=== PATIENT | female | born 1980 | race Two or more races ===

== ENCOUNTER 2025-04-20 00:13 | Observation (INO) | payer OTHER ==
[~2025-04-20] VITALS: Ht 162.6 cm; Wt 81.6 kg
--- NOTE | 2025-04-20 00:46 | DVH ---
Left lower extremity venous duplex Clinical History: rule out DVT Comparison: None Technique: Duplex Doppler evaluation of the deep venous system of the left lower extremity from the common femor al vein to the popliteal vein including color Doppler and spectral/pulsed waveform analysis was perfo rmed. Findings: The common femoral vein demonstrates appropriate compressibility and waveform variability. There is compressibility/patency of the great saphenous vein at the proximal thigh. The femoral vein demonstrates appropriate compressibility and waveform variability. The deep femoral vein demonstrates appropriate compressibility and waveform variability. The popliteal vein demonstrates appropriate compressibility and waveform variability. There is normal compressibility at the tibioperoneal trunk. Impression: 1. No left femoropopliteal venous thrombosis. 2. Contralateral common femoral vein is patent.
--- NOTE | 2025-04-20 01:13 | DVHDS2 ---
Physician Discharge Progress N Final Diagnosis: left leg cramp Operations or Procedures: Operations or Procedures S: 44yo , IUP @ 27.6 wks presents to OB Triage c/o pain and swelling in the left leg started at the ankle and moved up to her knee since Thursday. She thought she might have a spider bite. Left calf muscle was cramping today to where it was painful, now it is mild cramping. Pt deniesUCs/LOF/vb. +fm. PNC with Camden Mari LM. Uncomplicated thus far. O: VSS NST: reactive TOCO: no UCs Left leg assessment - redness noted on inner ankle and tenderness of calf muscle, no redness or heat palpated from calf. A: 44yo , IUP @ 27.6 wks Left leg cramp P: D/C home FKC/PTL precautions reviewed Take magnesium oral supplement or put topical magnesium on left calf muscle. f/u with primary OB provider as scheduled Dr. Meier consulted, agrees with POC. Other Interventions Other Interventions [place] [id number] Ph: [phone] DIAGNOSTIC IMAGING Diagnostic Imaging Report : [id number] Signed PATIENT: SOUMYA OSCARACCT: [id number] UNIT: [id number] : 1980 LOC: [facility] ROOM / BED: TRIAGE2 / A AGE / SEX: 44 / F ADM STATUS: ADM IN SERVICE [id number] ORDERING PHYSICIAN: KATHY MENDIETA CNM PROCEDURE(s): LLDVT - LT Lower DVT REASON: rule out DVT ORDER NUMBER(s): [id number], ACCESSION NUMBER(s): [id number] Left lower extremity venous duplex Clinical History: rule out DVT Comparison: None Technique: Duplex Doppler evaluation of the deep venous system of the left lower extremity from the common femoral vein to the popliteal vein including color Doppler and spectral/pulsed waveform analysis was performed. Findings: The common femoral vein demonstrates appropriate compressibility and waveform variability. There is compressibility/patency of the great saphenous vein at the proximal thigh. The femoral vein demonstrates appropriate compressibility and waveform variability. The deep femoral vein demonstrates appropriate compressibility and waveform variability. The popliteal vein demonstrates appropriate compressibility and waveform variability. There is normal compressibility at the tibioperoneal trunk. Impression: 1. No left femoropopliteal venous thrombosis. 2. Contralateral common femoral vein is patent. ATED BY: GEO LUNA MD DICTATED DATE/TIME: 04/20/2542 SIGNED BY: GEO LUNA MD SIGNED DATE/TIME: 04/20/2542 CC: Condition on Discharge: Stable Disposition: Home Discharge Instructions: Diet: Regular Activity: No Restrictions, As Tolerated Medications: see med list Follow Up Care: Specialist: f/u with primary OB provider as scheduled Discharge Statement: "Patient was advised to return to the ER or call 911 if any headaches, dizziness, shortness of breath, chest pain, abdominal pain, bleeding, fevers, or worsening of medical condition. Patient was counseled about treatment plan, medications, possible side effects, patientverbalized understanding. All questions were answered to the best of my ability. This discharge took greater then 30 minutes in planning, reviewing documentation, counseling the patient, and discussing with other team members." Visit Coding OBGYN Date of Service: Apr 20, 2025 Billing Provider: KATHY MENDIETA CNM TERMINAL OPERATIONS MANAGER Common Visit Codes: 90694-HHWHTZD OBS CARE (HIGH) TERMINAL OPERATIONS MANAGER Procedure Codes: 56593-32- NON-STRESS TEST PILAR MCL[place] STUDENTMDW Apr 20, 2025 01:12
== END 2025-04-20 01:30 | disposition home or self-care (01) ==
LOC: LDRP 00:13
PROVIDERS: ADMIT Obstetrics & Gynecology; ATTEND Obstetrics & Gynecology
DX: O26.892 Other specified pregnancy related conditions, second trimester (principal); G47.62 Sleep related leg cramps; R60.0 Localized edema; Z3A.27 27 weeks gestation of pregnancy
CPT/HCPCS: 59025; 81002; 93971; 94760; G0378